=== PATIENT | male | born 1990 | race African-American/Black ===

== ENCOUNTER 2018-01-26 01:52 | Emergency (ER) | payer MEDICAID ==
[~2018-01-26] VITALS: Ht 180.3 cm; Wt 91.0 kg
[2018-01-26] MEDS ORDERED: IBUPROFEN 600MG TABLET PO ONE (05:00)
[2018-01-26 05:35] VITALS: BP 126/57
== END 2018-01-26 05:35 | disposition home or self-care (01) ==
LOC: ER 01:52
DX: M54.5 Low back pain (principal); M79.604 Pain in right leg; V49.19XA Passenger injured in collision with other motor vehicles in nontraffic accident, initial encounter; Y93.89 Activity, other specified; Y92.410 Unspecified street and highway as the place of occurrence of the external cause
CPT/HCPCS: 99283